=== PATIENT | female | born 2000 | race Caucasian/White ===

== ENCOUNTER 2022-06-15 07:23 | Emergency (ER) | payer SELFPAY ==
[2022-06-15] MEDS ORDERED: Alum Hydrox/Mag Hydrox/Simeth 30 ML, Lidocaine 2% 15 ML PO ONE ×2 (08:24)
[2022-06-15] MEDS ORDERED: Famotidine 20 MG Tab PO ONE (08:24)
== END 2022-06-15 10:23 | disposition home or self-care (01) ==
LOC: JD.ED 07:23
DX: R10.13 Epigastric pain (principal)
CPT/HCPCS: 93005; 99284; A9270; 93010; 99282